=== PATIENT | female | born 1995 | race Caucasian/White ===

== ENCOUNTER 2016-10-11 19:56 | Emergency (ER) | payer BC, MEDICAID ==
[~2016-10-11] VITALS: Ht 154.9 cm; Wt 56.7 kg
[2016-10-11 20:01] VITALS: BP 145/81
--- NOTE | 2016-10-11 20:07 | NUR ---
PATIENT AMBULATED TO ER BED 07
--- NOTE | 2016-10-11 20:12 | NUR ---
20Y/F PATIENT PRESENTS TO ED WITH C/O SORE THROAT . PT STATES HAVING SORE THROAT X 2 DAYS, PT IUP 11 WKS . DENIES N/V/D; SKIN IS PINK/WARM/DRY; AAOX4 WITH EVEN AND STEADY GAIT; LUNGS CLEAR BL; HR EVEN AND REGULAR; PT DENIES ANY FEVER, CP, SOB, OR COUGH AT THIS TIME; PATIENT STATES PAIN OF 6/10 AT THIS TIME; VSS; PATIENT POSITIONED FOR COMFORT; HOB ELEVATED; BEDRAILS UP X2; BED DOWN. ER MD MADE AWARE OF PT STATUS.
[2016-10-11 21:33] VITALS: BP 131/78
--- NOTE | 2016-10-11 21:33 | NUR ---
Patient discharged with v/s stable. Written and verbal after care instructions given and explained. Patient verbalized understanding. Ambulatory with steady gait. All questions addressed prior to discharge. Advised to follow up with PMD.
== END 2016-10-11 21:33 | disposition home or self-care (01) ==
LOC: MED 19:56
DX: O26.891 Other specified pregnancy related conditions, first trimester (principal); J04.0 Acute laryngitis; Z3A.10 10 weeks gestation of pregnancy

== ENCOUNTER 2018-08-29 11:58 | Emergency (ER) | payer BC, MEDICAID, OTHER ==
[~2018-08-29] VITALS: Ht 154.9 cm; Wt 51.7 kg
--- NOTE | 2018-08-29 11:58 | NUR ---
RODO NEGRON, CURRENTLY AWAITING BED
--- NOTE | 2018-08-29 12:06 | NUR ---
PT TAKEN TO BED 1 BY EMS CREW Addendum: 08/29/18 at 1207 by [facility] BED 2
--- NOTE | 2018-08-29 12:06 | NUR ---
urine cup handed to pt for sample
[2018-08-29 12:07] VITALS: BP 128/85
--- NOTE | 2018-08-29 12:30 | NUR ---
22/ f brought in via ems from home, c/o head was spinning while laying down attempting to sleep; when awakening today patient states she felt dizzy, weak, dry mouth, intermittent headache. Patient denies headache at this time, denies n/v/d. Reports left side of face feeling numb with tingling. Denies injury, blurry vision, cp, sob. AOX4, clear speech, steady gait, safety precautions in place.
[2018-08-29] MEDS ORDERED: MECLIZINE 25 MG TAB PO ONE (13:30)
[2018-08-29] MEDS ORDERED: IBUPROFEN 600 MG TAB PO ONE (13:30)
[2018-08-29] MEDS ORDERED: LORazepam 1 MG TAB PO ONE (14:55)
--- NOTE | 2018-08-29 15:00 | NUR ---
PATIENT RESTING AT THIS TIME.
[2018-08-29 15:30] VITALS: BP 128/85
--- NOTE | 2018-08-29 15:30 | NUR ---
Patient discharged with v/s stable. Written and verbal after care instructions given and explained. Patient alert, oriented and verbalized understanding of instructions. Ambulatory with steady gait. All questions addressed prior to discharge. ID band removed. Patient advised to follow up with PMD. Rx of VISTARIL 25MG given. Patient educated on indication of medication including possible reaction and side effects. Opportunity to ask questions provided and answered.
[2018-08-29 15:52] LABS: APPEARANCE,URINE CLEAR (CLEAR); BILIRUBIN,URINE NEGATIVE (NEGATIVE); BLOOD, URINE NEGATIVE (NEGATIVE); COLOR,URINE YELLOW (YELLOW); LEUKOCYTE ESTERASE ,URINE NEGATIVE (NEGATIVE); NITRITE, URINE NEGATIVE (NEGATIVE); UGLUCOSE NEGATIVE (NEGATIVE)
[2018-08-29 16:14] LABS: BARBITURATE, URINE NEG. ng/ml (NEG <=200); BENZODIAZEPINE, URINE NEG. ng/mL (NEG <=200); CANNABINOID, URINE NEG. ng/mL (NEG <=50); COCAINE, URINE NEG. ng/mL (NEG <=300); OPIATE, URINE NEG. ng/mL (NEG <=2000); PHENCYCLIDINE SCREEN,URINE NEG. ng/mL (NEG <=25)
== END 2018-08-29 15:30 | disposition home or self-care (01) ==
LOC: MED 11:58
DX: F41.0 Panic disorder [episodic paroxysmal anxiety] (principal)
CPT/HCPCS: 80305; 81003; 81025; 99284; J8597